=== PATIENT | male | born 1945 | race Caucasian/White ===

== ENCOUNTER 2022-10-22 12:43 | Emergency (ER) | payer OTHER ==
[~2022-10-22] VITALS: Ht 182.8 cm; Wt 83.9 kg
[~2022-10-22 12:43] MED LIST: KEFLEX500 MG PO; PERCOCET 325 MG1 TA2 PO
[2022-10-22 13:32] LABS: BASO % 0.6 % (0.0-1.0); HEMATOCRIT 45.7 % (42.0-52.0); LYMPH # 1.1 10*3/uL (1.3-4.4); LYMPH % 17.8 % (27.0-41.0); MEAN CELL VOLUME 89.4 fl (80.0-94.0); MEAN CORPUSCULAR HGB 30.5 pg (27.0-31.0); MEAN CORPUSCULAR HGB CONC 34.1 g/dl (33.0-37.0); MEAN PLATELET VOLUME 9.3 fl (9.6-12.3); MONO # 0.5 10*3/uL (0.1-1.0); MONO % 7.6 % (3.0-9.0); NEUT # 4.6 10*3/uL (2.3-7.9); NEUT % 73.7 % (47.0-73.0); PLATELET COUNT AUTOMATED 150 10*3/uL (130-400); RED BLOOD COUNT 5.11 10*6/uL (4.50-5.90); RED CELL DISTRI WIDTH 14.3 % (0-14.5); WHITE BLOOD COUNT 6.3 10*3/uL (4.8-10.8)
[2022-10-22 13:44] LABS: CREATININE 1.53 mg/dL (0.70-1.30); POTASSIUM 4.1 mmol/L (3.5-5.1); TOTAL PROTEIN 7.1 gm/dL (6.4-8.2)
[2022-10-22] MEDS ORDERED: ZITHROMAX500 MG PO (14:55)
[2022-10-22] MEDS ORDERED: PREDNISONE50 MG PO (14:55)
== END 2022-10-22 15:04 | disposition home or self-care (01) ==
LOC: ED 12:43
PROVIDERS: Nurse Practitioner Family
DX: J44.1 Chronic obstructive pulmonary disease with (acute) exacerbation (principal); Z20.822 Contact with and (suspected) exposure to COVID-19